=== PATIENT | male | born 1970 | race African-American/Black ===

== ENCOUNTER 2018-12-02 14:47 | Outpatient (CLI) | payer OTHER ==
--- NOTE | 2018-12-02 16:30 | MRI ---
MRI Lumbar Spine with and without IVcontrast: HISTORY: Low back pain and left-sided leg pain. Disc degenerative disease lumbar spine. COMPARISON: None FINDINGS: The visualized retroperitoneal structures demonstrate a normal appearance. Conus medullaris is normal in morphology and terminates at the T12-L1 level. Incidental note is made of a fatty filum terminale. Postsurgical changes lumbar spine are seen with laminectomy defects at the L4-5 and L5-S1 levels. There is generalized narrowing of the central spinal canal due to congenital short pedicles as well a s prominence of epidural fat. L1-2: No disc bulge disc herniation is seen. Neural foramina are patent. There is of epidural fat whi ch does result in mild narrowing of the thecal sac. L2-3: There is a mild disc osteophyte complex. There is prominence of epidural fat which does result in mild to moderate concentric narrowing of the thecal sac. The neural foramina are patent. L3-4: There is a minimal disc osteophyte complex. There is prominence of epidural fat. There is moder ate narrowing of the thecal sac primarily related to the prominence of the epidural fat. Neural foramina are patent. L4-5: There are disc degenerative changes with evidence of vacuum phenomenon and loss of intervertebr al disc height. Endplate degenerative changes are present at this level. There are postsurgical changes related to prior laminotomy defect. There is soft tissue signal intensity which does demonstr ate enhancement seen posterior to the thecal sac and extends along the lateral aspect of the thecal sac bilaterally more prominent on the left with mild enhancing soft tissue density seen along the lef t anterolateral aspect of the thecal sac. Findings are most suggestive of scar tissue which does appear to abut the traversing left L5 nerve root. A disc osteophyte complex is present with a left pa racentral disc protrusion/extrusion. This narrows the left subarticular zone and results in mild to moderate narrowing of the central spinal canal. This may affect the traversing left L5 nerve root. Mi ld bilateral neural foraminal narrowing is present. L5-S1: Disc degenerative changes are present at this level with loss of intervertebral disc height. T here is a broad-based disc osteophyte complex with broad-based central disc protrusion. Mild facet degenerative changes are present. There is moderate narrowing of the central spinal canal. Moderate t o severe bilateral neural foraminal narrowing is present. Laminectomy defect is seen at this level, and there is enhancing soft tissue density seen posterior to the thecal sac related to scarring. [place] llic susceptibility artifact is also seen posteriorly in the subcutaneous soft tissues related to postsurgical change. IMPRESSION: 1. Generalized narrowing of the thecal sac involving the upper lumbar spine secondary to congenitally short pedicles as well as prominence of epidural fat. 2. Postsurgical changes at the L4-5 and L5-S1 levels related to laminectomy defects with scar tissue seen posterior to the thecal sac at these levels. Scar tissue does extend along the left lateral aspect of the thecal sac at the L4-5 level and likely abuts the traversing left L5 nerve root in the left subarticular zone. 3. Disc degenerative changes at the L4-5 and L5-S1 levels with broad-based disc osteophyte complexes and left central and paracentral broad-based disc protrusion at the L4-5 level with a dominant central disc protrusion centrally at the L5-S1 level. Findings result in moderate narrowing of the th ecal sac at these levels; there is also narrowing of the left subarticular zone at the L4-5 level due to the left paracentral disc protrusion/extrusion. 4. Moderate to severe bilateral neural foraminal narrowing at the L5-S1 level.
== END 2018-12-02 14:48 | disposition home or self-care (01) ==
LOC: TBSIIMAG 14:47
PROVIDERS: ATTEND Specialist
DX: M51.36 Other intervertebral disc degeneration, lumbar region (principal); M51.26 Other intervertebral disc displacement, lumbar region; M51.37 Other intervertebral disc degeneration, lumbosacral region; M48.061 Spinal stenosis, lumbar region without neurogenic claudication; M48.07 Spinal stenosis, lumbosacral region; M25.78 Osteophyte, vertebrae; M51.27 Other intervertebral disc displacement, lumbosacral region; Z98.890 Other specified postprocedural states
CPT/HCPCS: 72158

== ENCOUNTER 2022-03-29 10:21 | Outpatient (CLI) | payer OTHER ==
[2022-03-29 11:26] LABS: #Basophils 0.1 10x3/uL (0.0-0.2); #Eosinphils 0.2 10x3/uL (0.0-0.5); #Monocytes 0.8 10x3/uL (0.0-1.1); #Neutrophils 3.1 10x3/uL (1.5-8.4); %Basophils 0.9 % (0.0-2.0); %Eosinophils 3.7 % (0.0-6.0); %Lymphocytes 34.9 % (18.0-47.0); %Monocytes 11.9 % (0.0-10.0); %Neutrophils 48.3 % (40.0-75.0); Hemoglobin 13.5 g/dL (13.5-17.5); Mean Corpuscular HGB CONC 31.9 g/dL (32.0-36.0); Mean Corpuscular Hemoglobin 26.5 pg (27.0-33.0); Mean Corpuscular Volume 83.1 fl (81.2-95.1); Mean Platelet Volume 10.3 fl (7.4-10.4); Platelet Count 217 10x3/uL (150-450); RBC Distribution Width 14.8 % (11.5-14.5); Red Blood Cell (RBC) Count 5.09 10x6/uL (4.32-5.72); White Blood Cell (WBC) Count 6.4 10x3/uL (3.5-10.5)
[2022-03-29 11:39] LABS: Anion Gap 12 mmol/L (10-20); BUN (Urea Nitrogen) 16 mg/dL (8.4-25.7); Calc. Creatinine Clearance 0 mL/min (70-130); Calcium 9.1 mg/dL (7.8-10.44); Carbon Dioxide 26 mmol/L (22-29); Chloride 107 mmol/L (98-107); Estimated GFR 78; Glucose 107 mg/dL (70-105); Potassium 4.2 mmol/L (3.5-5.1); Sodium 141 mmol/L (136-145)
== END 2022-03-29 10:22 | disposition home or self-care (01) ==
LOC: LABBT 10:21
PROVIDERS: ATTEND Orthopaedic Surgery
DX: Z01.818 Encounter for other preprocedural examination (principal); S83.242A Other tear of medial meniscus, current injury, left knee, initial encounter; Z20.822 Contact with and (suspected) exposure to COVID-19
CPT/HCPCS: 71046; 80048; 85025; 87811; 93005; 93010

== ENCOUNTER 2022-04-03 07:09 | Day surgery (SDC) | payer OTHER ==
[2022-04-02 09:00] VITALS: BMI 39.8
[2022-04-03] MEDS ORDERED: PROPOFOL 20 ML ONE (08:24)
[2022-04-03] MEDS ORDERED: Bupivacaine PF 0.5% 30 ML VIAL ONE (08:35)
[2022-04-03] MEDS ORDERED: Lidocaine 2% w/Epinephrine 1:200K 20 ML VIAL ONE (08:35)
[2022-04-03] MEDS ORDERED: Dexamethasone 20 MG/5 ML VIAL ONE (09:15)
[2022-04-03] MEDS ORDERED: Phenylephrine 10 MG/ML VIAL ONE (09:15)
[2022-04-03] MEDS ORDERED: Ondansetron PF 4 MG/2 ML Vial ONE (09:15)
[2022-04-03] MEDS ORDERED: Lidocaine 1% MPF 2 ML VIAL ONE (09:15)
[2022-04-03] MEDS ORDERED: fentaNYL Citrate/PF 100 MCG/2 ML SYRINGE ONE (09:44)
[2022-04-03] MEDS ORDERED: CEFAZOLIN 2 GM VIAL ONE (09:53)
[2022-04-03] MEDS ORDERED: Sodium Chloride 0.9% 100 ML ONE (09:53)
== END 2022-04-03 14:11 | disposition home or self-care (01) ==
LOC: SDC 07:09
PROVIDERS: ATTEND Orthopaedic Surgery
PROC: 0SBD4ZZ Excision of Left Knee Joint, Percutaneous Endoscopic Approach (ICD-10-PCS; principal; 2022-04-03)
DX: S83.242A Other tear of medial meniscus, current injury, left knee, initial encounter (principal); M23.8X2 Other internal derangements of left knee; Z79.899 Other long term (current) drug therapy; Z88.5 Allergy status to narcotic agent; Z88.6 Allergy status to analgesic agent; X58.XXXA Exposure to other specified factors, initial encounter
CPT/HCPCS: J0690; J1100; J2370; J2405; J2704; J3490